=== PATIENT | female | born 1995 | race Caucasian/White ===

== ENCOUNTER 2016-10-29 10:09 | Emergency (ER) | payer BC ==
[~2016-10-29] VITALS: Ht 157.5 cm; Wt 48.0 kg
[~2016-10-29 10:09] MED LIST: BACTRIM,SEPT1 TABLET PO; BACTROBAN OINTM22 GM TP; CEFDINIR300 MG PO; ENDOCET 5-3251 EACH PO; KEFLEX500 MG PO; KLONOPIN0.5 M1 PO; MACROBID100 MG PO; MINASTRIN 24 F1 EACH PO; MOTRIN600 MG PO; MOTRIN800 MG PO; NORCO 5/3251 TABLET PO; NORCO 7.5/321 TABLET PO; PERCOCET 5/31 TABLET PO; PRENATAL TABLE1 EAC3 PO; PYRIDIUM100 MG PO
[2016-10-29 11:28] LABS: HEMATOCRIT 40.9 % (36.0-46.0); MCH 33.2 PG (29.0-34.0); MCHC 35.5 G/DL (30.0-36.0); MCV 93.6 FL (83-99); RBC DIS.WIDTH-CV 11.7 % (11.8-14.6); RBC DIS.WIDTH-SD 40.7 % (39-53); RED BLOOD COUNT 4.37 M/uL (3.80-5.20); WHITE BLOOD COUNT 10.5 K/uL (4.1-10.2)
[2016-10-29 11:41] LABS: CHLORIDE 107 mEq/L (99-109); POTASSIUM 3.7 mEq/L (3.7-5.4); SODIUM 140 mEq/L (136-147)
[2016-10-29 11:42] VITALS: BP 106/64
[2016-10-29 11:43] LABS: GLUCOSE 83 mg/dL (70-99)
[2016-10-29 11:44] LABS: ANION GAP 11 MEQ/L (2-14)
[2016-10-29 11:46] LABS: GFR ESTIMATE (CALCULATED) > 59 mL/min/
[2016-10-29 11:47] LABS: UREA NITROGEN (BUN) 13 mg/dL (9-23)
[2016-10-29 11:56] LABS: QUANTITATIVE HCG < 4.0 MIU/ML
[2016-10-29 12:08] LABS: MEAN PLAT.VOLUME 11.6 uM^3 (9.5-12.4); PLAT.SUFFICIENCY ADEQUATE; PLATELET COUNT 157 K/uL (156-360)
[2016-10-29] MEDS ORDERED: BACTRIM,SEPT1 TABLET PO (13:51)
[2016-10-29] MEDS ORDERED: MOTRIN600 MG PO (13:51)
[2016-10-29] MEDS ORDERED: KEFLEX500 MG PO (13:51)
== END 2016-10-29 14:13 | disposition home or self-care (01) ==
LOC: EME 10:09
PROVIDERS: Nurse Practitioner Family
PROC: 0U9MXZZ Drainage of Vulva, External Approach (ICD-10-PCS; principal; 2016-10-29)
DX: N76.4 Abscess of vulva (principal); N76.2 Acute vulvitis
CPT/HCPCS: 72193; 80048; 83605; 84702; 85027; 87040; 87070; 87075; 87076; 87185; 87205; 99281; 99285; J1885; J7040

== ENCOUNTER 2016-12-14 18:40 | Emergency (ER) | payer OTHER ==
[~2016-12-14] VITALS: Ht 157.5 cm; Wt 51.0 kg
[2016-12-14 19:13] LABS: ADD MIUA? YES; BILIRUBIN NEGATIVE; BLOOD LARGE; COLOR STRAW ((YELLOW)); GLUCOSE (STRIP) NEGATIVE; KETONES NEGATIVE; LEUKOCYTES NEGATIVE; NITRITE NEGATIVE; PROTEIN (STRIP) NEGATIVE; SPECIFIC GRAVITY 1.006 (1.000-1.030); UROBILINOGEN 0.2 MG/DL (0.2-1.0)
[2016-12-14 19:17] LABS: HEMATOCRIT 37.5 % (36.0-46.0); MCH 33.4 PG (29.0-34.0); MCHC 35.7 G/DL (30.0-36.0); MCV 93.5 FL (83-99); RBC DIS.WIDTH-CV 11.3 % (11.8-14.6); RBC DIS.WIDTH-SD 38.9 % (39-53); RED BLOOD COUNT 4.01 M/uL (3.80-5.20); WHITE BLOOD COUNT 7.2 K/uL (4.1-10.2)
[2016-12-14 19:22] LABS: BACTERIA RARE /HPF; EPITHELIAL CELLS RARE /HPF; MUCUS NONE SEEN /LPF; RED BLOOD CELLS 0-5 /HPF (0-5); UCUL ADDED? NO; WHITE BLOOD CELLS 0-5 /HPF (0-5)
[2016-12-14 20:33] LABS: HEMATOLOGY COMMENT 1 SN; MEAN PLAT.VOLUME 11.4 uM^3 (9.5-12.4); PLAT.SUFFICIENCY ADEQUATE; PLATELET COUNT 171 K/uL (156-360)
[2016-12-14 23:10] VITALS: BP 117/83
== END 2016-12-14 23:10 | disposition home or self-care (01) ==
LOC: EME 18:40 → EXP 18:40
DX: O20.9 Hemorrhage in early pregnancy, unspecified (principal); R10.9 Unspecified abdominal pain; Z3A.01 Less than 8 weeks gestation of pregnancy
CPT/HCPCS: 76801; 81003; 84702; 85027; 86900; 86901; 99281; 99283

== ENCOUNTER 2017-01-26 05:52 | Emergency (ER) | payer OTHER ==
[~2017-01-26] VITALS: Ht 157.5 cm; Wt 51.1 kg
[2017-01-26 06:31] LABS: HEMATOCRIT 40.6 % (36.0-46.0); MCH 33.9 PG (29.0-34.0); MCV 94.2 FL (83-99); PLATELET COUNT 153 K/uL (156-360); RBC DIS.WIDTH-CV 11.6 % (11.8-14.6); RBC DIS.WIDTH-SD 40.7 % (39-53); RED BLOOD COUNT 4.31 M/uL (3.80-5.20); WHITE BLOOD COUNT 5.8 K/uL (4.1-10.2)
[2017-01-26 06:40] LABS: D-DIMER ELISA < 150.00 ng/mLDDU (<230)
[2017-01-26 06:41] LABS: CHLORIDE 103 mEq/L (99-109); POTASSIUM 3.2 mEq/L (3.7-5.4); SODIUM 139 mEq/L (136-147)
[2017-01-26 06:43] LABS: GLUCOSE 93 mg/dL (70-99)
[2017-01-26 06:44] LABS: ANION GAP 14 MEQ/L (2-14)
[2017-01-26 06:47] LABS: GFR ESTIMATE (CALCULATED) > 59 mL/min/
[2017-01-26 06:48] LABS: UREA NITROGEN (BUN) 9 mg/dL (9-23)
[2017-01-26 06:52] LABS: TROP-I INTERPRETATION NEGATIVE; TROPONIN-I < 0.01 ng/mL (0.0-0.30)
[2017-01-26 08:49] VITALS: BP 99/73
== END 2017-01-26 08:51 | disposition home or self-care (01) ==
LOC: EME 05:52
PROVIDERS: Emergency Medicine
DX: R07.9 Chest pain, unspecified (principal); R10.9 Unspecified abdominal pain; M54.9 Dorsalgia, unspecified; R00.0 Tachycardia, unspecified; Z79.3 Long term (current) use of hormonal contraceptives; F17.200 Nicotine dependence, unspecified, uncomplicated
CPT/HCPCS: 71020; 80048; 84484; 85027; 85379; 93005; 99281; 99284